=== PATIENT | female | born 1960 | race Caucasian/White ===

== ENCOUNTER → 2017-05-27 | Outpatient (CLI) | payer BC ==
[~2017-05-27] MED LIST: AZAT50TA17 PO; CALC500C70 PO; FEXO1TAB46 PO; LCTX PO; MULT-506 PO; PRLSR20 PO; Prednisone PO
--- NOTE | 2017-05-27 15:37 | MAMMOGRAPHY REPORT ---
BILATERAL DIGITAL SCREENING MAMMOGRAM TOMOSYNTHESIS WITH CAD: 05/27/2017 CLINICAL HISTORY: Routine screening. Patient has no complaints. TECHNIQUE: Breast tomosynthesis in addition to standard 2D mammography was performed. Current study was also evaluated with a Computer Aided Detection (CAD) system. COMPARISON: Comparison is made to exams dated: 05/26/2016 mammogram, 05/22/2015 mammogram, 05/16/2014 mammogram, 05/14/2013 mammogram, 05/08/2012 mammogram, and 03/26/2011 mammogram - [facility]. BREAST COMPOSITION: There are scattered areas of fibroglandular density in both breasts. FINDINGS: No suspicious masses, calcifications, or areas of architectural distortion are noted in ei ther breast. There has been no significant interval change compared to prior exams. IMPRESSION: ACR BI-RADS CATEGORY 1: NEGATIVE There is no mammographic evidence of malignancy. A 1 year screening mammogram is recommended. The pa tient will receive written notification of the results. Approximately 10% of breast cancers are not detected with mammography. A negative mammographic report should not delay biopsy if a clinically suggestive mass is present. Jessica Silverio M.D. ah/:05/27/2017 08:45:23 Head Cd Reactor Operator: Tanya LOVE(Radha)(Viji)(BD), [facility] letter sent: Normal 1/2 BI-RADS Code: ACR BI-RADS Category 1: Negative
== END | disposition home or self-care (01) ==
LOC: C.MAMM 07:59
PROVIDERS: ATTEND Internal Medicine
DX: Z12.31 Encounter for screening mammogram for malignant neoplasm of breast (principal)

== ENCOUNTER → 2017-07-01 | Outpatient (CLI) | payer BC | END | disposition home or self-care (01) | LOC: C.LAB 13:54 | PROVIDERS: ATTEND Internal Medicine Hematology & Oncology | DX: D69.6 Thrombocytopenia, unspecified (principal) ==

== ENCOUNTER 2017-10-22 10:26 | Emergency (ER) | payer BC, OTHER ==
[~2017-10-22] VITALS: Ht 167.6 cm; Wt 92.4 kg
[2017-10-22 10:35] VITALS: TEMP 36.6; Ht 167.6 cm; Wt 92.4 kg
[2017-10-22] MEDS ORDERED: ONDANSETRON INJ 2 MG/ML 2 ML VIAL IV STA (10:54)
[2017-10-22] MEDS ORDERED: SODIUM CHLORIDE 0.9% 1000ML 1,000 ML IV STA (10:54)
[2017-10-22 11:25] LABS: BASO % 0.2 %; BASO ABS # 0.01 K/uL (0-0.2); EOS % 0.4 %; EOS ABS # 0.02 K/uL (0-0.5); HEMATOCRIT 48.7 % (37-47); HEMOGLOBIN 17.6 g/dL (12.0-16.0); IG# 0.01 K/uL (0.00-0.02); LYMPH % 11.8 %; MEAN CELL VOLUME 82.7 fL (80-100); MEAN CORPUSCULAR HEMOGLOBIN 29.9 pg (25-34); MEAN CORPUSCULAR HGB CONC 36.1 g/dl (32-36); MEAN PLATELET VOLUME 9.3 fL (7.4-10.4); MONO % 10.1 %; MONO ABS # 0.51 K/uL (0.11-0.59); NEUT % 77.3 %; NEUT ABS # 3.92 K/uL (1.4-6.5); PLATELET COUNT 176 K/uL (130-400); RED CELL DISTRIBUTION WIDTH CV 13.8 % (11.5-14.5); RED CELL DISTRIBUTION WIDTH SD 41.6 fL (36.4-46.3); WHITE BLOOD COUNT 5.07 K/uL (4.8-10.8)
[2017-10-22] MEDS ORDERED: CLL250 PO (11:38)
[2017-10-22] MEDS ORDERED: MYCO250C7 PO (11:38)
[2017-10-22] MEDS ORDERED: METO5TAB2 PO (11:38)
[2017-10-22] MEDS ORDERED: METO1TAB54 PO (11:38)
[2017-10-22 11:45] LABS: ALBUMIN 4.1 gm/dl (3.4-5.0); CALCIUM 9.2 mg/dl (8.5-10.1); CREATININE 1.64 mg/dl (0.60-1.20); POTASSIUM 2.8 mmol/L (3.5-5.1)
[2017-10-22] MEDS ORDERED: POTASSIUM CHLORIDE 10 MEQ / 100ML WTR IV STA (11:48)
[2017-10-22] MEDS ORDERED: SODIUM CHLORIDE 0.9% 500ML 500 ML IV STA (13:09)
[2017-10-22 14:09] VITALS: BP 126/86; PULSE 89; O2SAT 98
[2017-10-22] MEDS ORDERED: METR-163 PO (16:07)
--- NOTE | 2017-10-22 16:59 | EMERGENCY ROOM VISIT NOTE ---
History Report prepared by Michelle: Perico Fatima Under the Supervision of: Dr. Basil Mazariegos M.D. First contact with patient: 10:47 Chief Complaint: VOMITING Stated Complaint: VOMITING, DIARRHEA, DEHYDRATED History of Present Illness The patient is a 57 year old female who presents to the Emergency Room with complaints of persistent, moderate vomiting and diarrhea beginning 5 days ago. The patient notes that the last time she vomited or experienced diarrhea was this morning. The patient reports experiencing cramping sensations across her abdomen but denies any significant pain. She denies experiencing any fevers or urinary symptoms, but notes that her urine is not yellow. The patient reports that she has had a loss of appetite, but has been able to keep down fluids in small quantities. She notes a history of gastroparesis and surgery for diverticulitis. Source of History: patient Onset: 5 days ago Position: other (global ) Symptom Intensity: moderate Timing: other (persistant ) Associated Symptoms: + abdominal pain (cramping ), No fevers, No urinary symptoms Note: Associated Symptoms: loss of appetite. Review of Systems See HPI for pertinent positives & negatives. A total of 10 systems reviewed and were otherwise negative. Past Medical & Surgical Medical Problems: (1) Anemia Nos (2) Disorder Of Thyroid Nos (3) Esophageal Reflux (4) Gastroparesis (5) Hypopotassemia (6) Sciatica (7) Umbilical Hernia W Obstr Family History FH: diabetes mellitus FH: gallbladder disease FH: hypertension FH: kidney disease Social History Smoking Status: Never Smoker Drug Use: none Marital Status: Housing Status: lives with family Occupation Status: employed Current/Historical Medications Scheduled Calcium/Vitamin D (Os-Jorge 500 Plus D), 1 TAB PO DAILY Lactobacillus Acidophilus (Lactinex), 2 TABS PO DAILY Metoclopramide Hcl (Metoclopramide Hcl), 5 MG PO BID Metronidazole (Flagyl), 500 MG PO TID Multivitamin (Multivitamin), 1 TAB PO DAILY Mycophenolate Mofetil (Mycophenolate Mofetil), 750 MG PO QAM Mycophenolate Mofetil (Mycophenolate Mofetil), 500 MG PO QPM Omeprazole (Prilosec), 20 MG PO DAILY Allergies Coded Allergies: Acetaminophen (Verified Allergy, Intermediate, From Vicodin, 10/22/17) Reported by PT. Hydrocodone (Verified Allergy, Unknown, Rash, 10/22/17) Reported by PT Physical Exam Vital Signs Date Time Temp Pulse Resp B/P (MAP) Pulse Ox O2 Delivery O2 Flow Rate FiO2 10/22/17 14:09 89 18 126/86 98 Room Air 10/22/17 12:57 90 18 106/87 94 Room Air 10/22/17 11:44 91 18 130/87 100 Room Air 10/22/17 10:35 36.6 129 15 125/78 94 Room Air Physical Exam Constitutional: Vital signs reviewed. Eyes: Pupils are equal round reactive to light. Conjunctiva are noninjected. ENT: Pharynx is clear without erythema or exudate. Mucous membranes are dry. Neck supple without meningeal signs. Respiratory: Clear to auscultation bilaterally. Breath sounds are equal bilaterally. Cardiovascular: Regular rate and rhythm. No rubs or gallops. GI: Soft, nondistended and nontender. Bowel sounds are present. Musculoskeletal: No peripheral edema. No lower extremity tenderness. Integumentary: No cyanosis. Neurological: The patient is awake and alert. No focal deficits. Psychiatric: Normal affect. Medical Decision & Procedures Laboratory Results 10/22/17 11:15 Red Blood Count 5.89, Mean Corpuscular Volume 82.7, Mean Corpuscular Hemoglobin 29.9, Mean Corpuscular Hemoglobin Concent 36.1, Mean Platelet Volume 9.3, Neutrophils (%) (Auto) 77.3, Lymphocytes (%) (Auto) 11.8, Monocytes (%) (Auto) 10.1, Eosinophils (%) (Auto) 0.4, Basophils (%) (Auto) 0.2, Neutrophils # (Auto ) 3.92, Lymphocytes # (Auto) 0.60, Monocytes # (Auto) 0.51, Eosinophils # (Auto ) 0.02, Basophils # (Auto) 0.01 10/22/17 11:15 Test 10/22/17 11:15 White Blood Count 5.07 K/uL (4.8-10.8) Red Blood Count 5.89 M/uL (4.2-5.4) Hemoglobin 17.6 g/dL (12.0-16.0) Hematocrit 48.7 % (37-47) Mean Corpuscular Volume 82.7 fL (80-100) Mean Corpuscular Hemoglobin 29.9 pg (25-34) Mean Corpuscular Hemoglobin Concent 36.1 g/dl (32-36) Platelet Count 176 K/uL (130-400) Mean Platelet Volume 9.3 fL (7.4-10.4) Neutrophils (%) (Auto) 77.3 % Lymphocytes (%) (Auto) 11.8 % Monocytes (%) (Auto) 10.1 % Eosinophils (%) (Auto) 0.4 % Basophils (%) (Auto) 0.2 % Neutrophils # (Auto) 3.92 K/uL (1.4-6.5) Lymphocytes # (Auto) 0.60 K/uL (1.2-3.4) Monocytes # (Auto) 0.51 K/uL (0.11-0.59) Eosinophils # (Auto) 0.02 K/uL (0-0.5) Basophils # (Auto) 0.01 K/uL (0-0.2) RDW Standard Deviation 41.6 fL (36.4-46.3) RDW Coefficient of Variation 13.8 % (11.5-14.5) Immature Granulocyte % (Auto) 0.2 % Immature Granulocyte # (Auto) 0.01 K/uL (0.00-0.02) Anion Gap 9.0 mmol/L (3-11) Est Creatinine Clear Calc Drug Dose 43.8 ml/min Estimated GFR () 40.1 Estimated GFR (Non- 34.6 BUN/Creatinine Ratio 11.8 (10-20) Calcium Level 9.2 mg/dl (8.5-10.1) Total Bilirubin 1.1 mg/dl (0.2-1) Direct Bilirubin 0.3 mg/dl (0-0.2) Aspartate Amino Transf (AST/SGOT) 55 U/L (15-37) Alanine Aminotransferase (ALT/SGPT) 61 U/L (12-78) Alkaline Phosphatase 105 U/L (45-117) Total Protein 9.0 gm/dl (6.4-8.2) Albumin 4.1 gm/dl (3.4-5.0) Lipase 451 U/L (73-393) Laboratory results as reviewed by me. Medications Administered Medications (Trade) Dose Ordered Sig/Terrell Route Start Time Stop Time Status Last Admin Dose Admin Sodium Chloride 1,000 ml @ 999 mls/hr Q1H1M STAT IV 10/22/17 10:54 10/22/17 11:54 DC 10/22/17 11:14 999 MLS/HR Ondansetron HCl (Zofran Inj) 4 mg NOW STAT IV 10/22/17 10:54 10/22/17 10:55 DC 10/22/17 11:14 4 MG Potassium Chloride (Kcl 10 Meq / Wtr) 10 meq NOW STAT IV 10/22/17 11:48 10/22/17 11:49 DC 10/22/17 11:55 10 MEQ Sodium Chloride 500 ml @ 999 mls/hr Q31M STAT IV 10/22/17 13:09 10/22/17 13:39 DC 10/22/17 13:09 999 MLS/HR ED Course 1048: The patient was evaluated in room C12. A complete history and physical exam was performed. 1054: Ordered Zofran Inj 4mg IV and Sodium Chloride 1000 ml @ 999 mls/hr IV 1148: Ordered Potassium Chloride 10meq IV. 1228: I discussed test results with the patient. She feels much better. The patient does have a history of autoimmune hepatitis and she is on Cellcept. We will check stool culture and c diff to see if she can provide a sample. She denies any recent antibiotic use or exposure to c. diff. 1309: Ordered Sodium Chloride 500 ml @ 999 mls/hr IV. 1402: I reevaluated the patient. She feels much better and is able to drink without difficulty. She does not want to wait for the C. Diff. result. She will contact her GI doctor on Tuesday. She has Reglan at home for vomiting. Upon reevaluation, the patient appeared to have improvement of her symptoms. I discussed fior's findings with her. She verbalized agreement of the treatment plan. She was discharged home. Medical Decision This is a 57-year-old female presents with vomiting and diarrhea. Differential diagnosis includes gastroenteritis, foodborne illness, electrolyte abnormality, dehydration, C. difficile infection. I did perform a limited focused review of portions of the patient's old chart on the electronic medical record. The patient has had no recent pertinent visits to this hospital. I did evaluate the patient as noted above. IV access was established. I did treat the patient with normal saline IV. She was also given Zofran IV. I did order and review the patient's blood work as noted in the electronic medical record. She has hemoconcentration with an elevated hemoglobin. Her renal function is slightly elevated as well likely from dehydration. Her potassium is low from her diarrhea. She was given IV potassium. She was also given additional normal saline. I did reassess patient. She is feeling better. She is able to drink without difficulty. I did order testing for C. difficile and stool cultures. She did not wish to wait for the results and so I told her that we would call her if they were positive. She does have Reglan at home and so I did not give her prescription for Zofran due to the risk of prolonged QT and arrhythmia from her hypokalemia and Reglan. She was discharged in good condition and will follow up with her commercial director on Tuesday. The lab later called and stated that she had a positive C. difficile antigen test. The charge nurse called her and I sent in a prescription for Flagyl for 10 days. Medication Reconcilliation Current Medication List: was personally reviewed by me Blood Pressure Screening Patient's blood pressure: Normal blood pressure The patient is normotensive. Impression Primary Impression: Dehydration Additional Impressions: Vomiting and diarrhea Hypokalemia C. difficile diarrhea Scribe Attestation The scribe's documentation has been prepared under my direct and personally reviewed by me in its entirety. I confirm that the note above accurately reflects all work, treatment, procedures, and medical decision making performed by me. Departure Information Dispostion Home / Self-Care Prescriptions Metronidazole (Flagyl) 500 Mg Tab 500 MG PO TID for 10 Days, #30 TAB Prov: Basil Mazariegos M.D. 10/22/17 Referrals Ana Bowling M.D. (PCP) Forms HOME CARE DOCUMENTATION FORM, IMPORTANT VISIT INFORMATION Patient Instructions ED Dehydration, ED Diet High Potassium, Hypokalemia [place], [facility] Additional Instructions You have been examined and treated today on an emergency basis only. This is not a substitute for, or an effort to provide, complete comprehensive medical care. It is impossible to recognize and treat all injuries or illnesses in a single emergency department visit. It is therefore important that you follow up closely with your physician. Call as soon as possible for an appointment. Return for worsening symptoms or if you develop fever, rectal bleeding, abdominal pain or any other concerning symptoms. Problem Qualifiers
== END 2017-10-22 14:22 | disposition home or self-care (01) ==
LOC: C.EDB 10:28 → C.EDC 14:22
DX: E86.0 Dehydration (principal); R11.10 Vomiting, unspecified; E87.6 Hypokalemia; A04.72 Enterocolitis due to Clostridium difficile, not specified as recurrent; D64.9 Anemia, unspecified; K21.9 Gastro-esophageal reflux disease without esophagitis; Z88.5 Allergy status to narcotic agent; Z88.8 Allergy status to other drugs, medicaments and biological substances